=== PATIENT | male | born 1950 | race Caucasian/White ===

== ENCOUNTER → 2018-08-04 | Outpatient (CLI) | payer MEDICARE, OTHER ==
[~2018-08-04] MED LIST: ALPR0.257 PO; ASPI81TA45 PO; ATOR80TA PO; METO25TA35 PO; TICA90TA PO
== END | disposition home or self-care (01) ==
LOC: CFH 08:47
PROVIDERS: ATTEND Internal Medicine Cardiovascular Disease
DX: I35.8 Other nonrheumatic aortic valve disorders (principal); I46.2 Cardiac arrest due to underlying cardiac condition; Z98.61 Coronary angioplasty status
CPT/HCPCS: 93306

== ENCOUNTER 2019-07-15 11:14 | Outpatient (CLI) | payer MEDICARE ==
[2019-07-15 13:11] LABS: CHLORIDE 108 mmol/L (98-107)
[2019-07-15 13:21] LABS: ALANINE AMINOTRANSFERASE 42 U/L (12-78); ALBUMIN 3.7 g/dL (3.4-5.0); ALKALINE PHOSPHATASE 93 U/L (45-117); ANION GAP 6 mmol/L (5-15); BILIRUBIN,TOTAL 0.9 mg/dL (0.2-1.0); CHOL/HDL RATIO 4.3; CHOLESTEROL, TOTAL 185 mg/dL (140-239); CREATININE 1.03 mg/dL (0.7-1.3); HDL CHOL % 23 % (26-37); HDL CHOLESTEROL (DIRECT) 43 mg/dL (40-60); LDL CHOLESTEROL,CALCULATED 83 mg/dL (54-169); LDL/HDL RATIO 1.9 (0.5-3.0); TOTAL PROTEIN 7.2 g/dL (6.4-8.2); TRIGLYCERIDES 294 mg/dL (50-200); VLDL CHOLESTEROL 59 mg/dL (0-25)
== END 2019-07-15 23:59 | disposition home or self-care (01) ==
LOC: CFH 11:14
PROVIDERS: ATTEND Internal Medicine Cardiovascular Disease
DX: R00.2 Palpitations (principal); Z79.899 Other long term (current) drug therapy
CPT/HCPCS: 36415; 80053; 80061